=== PATIENT | male | born 1985 | race Two or more races ===

== ENCOUNTER 2024-03-07 12:39 | Inpatient (IN) | payer OTHER ==
[~2024-03-07] VITALS: Ht 172.7 cm; Wt 100.0 kg
[2024-03-07] MEDS: LevETIRAcetam 1,000 MG in DEXTROSE 5%-WATER 100 ML IV ONE (13:22)
[2024-03-07 13:25] LABS: BASOPHILS % (AUTO) 0.3 % (0.0-2.0); EOSINOPHILS % (AUTO) 0.6 % (1.0-6.0); HEMATOCRIT 44.3 % (41-53); LYMPHOCYTES # (AUTO) 0.9 K/uL (1.0-4.8); LYMPHOCYTES % (AUTO) 14.5 % (22.0-44.0); MEAN CORPUSCULAR HEMOGLOBIN 29.3 pg (26.0-34.0); MEAN CORPUSCULAR HGB CONC 33.8 G/dL (31.0-37.0); MEAN CORPUSCULAR VOLUME 87 fL (80-100); MONOCYTES # (AUTO) 0.5 K/uL (0.1-1.0); MONOCYTES % (AUTO) 7.4 % (2.0-9.0); NEUTROPHILS % (AUTO) 77.2 % (40.0-70.0); PLATELET COUNT (AUTO) 263 K/uL (150-450); RED BLOOD CELL COUNT(AUTO) 5.11 MIL/uL (4.50-5.90); RED CELL DISTRIBUTION WIDTH 13.6 % (11.5-14.5); WHITE BLOOD COUNT (AUTO) 6.5 K/uL (4.5-11.0)
[2024-03-07 13:43] LABS: ANION GAP 4 mmol/L (8-16); CALCIUM, TOTAL 8.8 mg/dL (8.8-10.5); CARBON DIOXIDE 31 mmol/L (22-29); CHLORIDE 102 mmol/L (98-107); CREATININE 1.13 mg/dL (0.60-1.30); GLOMERULAR FILTR. RATE CALC > 60 mL/min (>60); GLUCOSE,RANDOM 103 mg/dL (70-110); POTASSIUM 5.7 mmol/L (3.5-5.1); SODIUM SERUM 137 mmol/L (136-145); UREA NITROGEN, BLOOD 12 mg/dL (7-18)
[2024-03-07 13:51] LABS: B-TYPE NATRIURETIC PEPTIDE 5 pg/mL (0-100)
[2024-03-07 13:56] LABS: TROPONIN I-HIGH SENSITIVITY Less Than 4 ng/L (<76)
[2024-03-07 14:07] LABS: CREATINE KINASE, TOTAL ONLY 117 U/L (39-308)
[2024-03-07 14:47] LABS: ALCOHOL, BLOOD (SERUM) < 3 mg/dL (0-10)
[2024-03-07] MEDS ORDERED: ONDANSETRON HCL 4 MG/2 ML VIAL IVP PRN (18:00)
[2024-03-07] MEDS ORDERED: BISACODYL 10 MG RECTAL RECTAL SUPPOSITORY PR PRN (18:00)
[2024-03-07] MEDS ORDERED: IPRATROPIUM BROMIDE 0.5 MG/2.5 ML NEB SOLUTION NEB PRN (18:00)
[2024-03-07] MEDS ORDERED: MAGNESIUM HYDROXIDE SUSPENSION 30 ML UDCUP PO PRN (18:00)
[2024-03-07] MEDS ORDERED: ALBUTEROL SULFATE 2.5 MG/0.5 ML NEB SOLUTION NEB PRN (18:00)
[2024-03-07 19:07] LABS: APPEARANCE,URINE CLEAR (CLEAR); BILIRUBIN,URINE NEGATIVE (NEGATIVE); COLOR,URINE LIGHT YELLOW (YELLOW); GLUCOSE, URINE (UA) NEGATIVE (NEGATIVE); KETONES,URINE NEGATIVE (NEGATIVE); LEUKOCYTE ESTERASE ,URINE NEGATIVE (NEGATIVE); NITRATE,URINE NEGATIVE (NEGATIVE); OCCULT BLOOD,URINE NEGATIVE (NEGATIVE); PROTEIN,URINE NEGATIVE (NEGATIVE); SPECIFIC GRAVITIY, URINE 1.011 (1.003-1.030); UROBILINOGEN,URINE <=1.0 mg/dL (<=1.0)
[2024-03-07 19:14] LABS: AMPHET/METH SCREEN,URINE NEGATIVE (NEGATIVE); BARBITURATE SCREEN, URINE NEGATIVE (NEGATIVE); BENZODIAZEPINES SCREEN,URINE NEGATIVE (NEGATIVE); CANNABINOID SCREEN,URINE NEGATIVE (NEGATIVE); COCAINE SCREEN,URINE NEGATIVE (NEGATIVE); METHADONE SCREEN, URINE NEGATIVE (NEGATIVE); OPIATE SCREEN,URINE NEGATIVE (NEGATIVE); PHENCYCLIDINE SCREEN,URINE NEGATIVE (NEGATIVE)
[2024-03-07 19:17] LABS: ALCOHOL, URINE DRUG SCREEN NEGATIVE (NEGATIVE)
[2024-03-07 21:24] VITALS: BP 112/79; PULSE 72; RESP 18; TEMP 98.6; O2SAT 98
[2024-03-07] MEDS: LevETIRAcetam 500 MG TABLET PO SCH (21:25)
[2024-03-07] MEDS: HEPARIN SODIUM,PORCINE 5,000 UNITS/ML VIAL SQ SCH (23:27)
[2024-03-08 00:11] VITALS: BP 117/70; PULSE 71; RESP 18; TEMP 97.8; O2SAT 98
[2024-03-08 04:06] VITALS: BP 94/56; PULSE 71; RESP 18; TEMP 97.7; O2SAT 98
[2024-03-08] MEDS: PANTOPRAZOLE SODIUM 40 MG DR TABLET PO SCH (08:48)
[2024-03-08 11:21] VITALS: BP 112/60; PULSE 73; RESP 16; TEMP 98; O2SAT 98
[2024-03-08] MEDS: HYDROCODONE/ACETAMINOPHEN 5-325 MG TABLET PO PRN (14:33)
[2024-03-08 16:00] VITALS: BP 110/57; PULSE 82; RESP 15; TEMP 99.2; O2SAT 96
[2024-03-08] MEDS: MORPHINE SULFATE 2 MG/ML SYRINGE IVP PRN (17:04)
[2024-03-08 19:42] VITALS: BP 96/63; PULSE 69; RESP 16; TEMP 98.2; O2SAT 96
[2024-03-08] MEDS: ZOLPIDEM TARTRATE 5 MG TABLET PO PRN (21:05)
[2024-03-08 23:35] VITALS: BP 107/64; PULSE 76; RESP 18; TEMP 97.8; O2SAT 95
[2024-03-09 03:39] VITALS: BP 102/69; PULSE 71; RESP 17; TEMP 97.7; O2SAT 97
[2024-03-09 08:33] VITALS: BP 117/69; PULSE 77; RESP 18; TEMP 98.1; O2SAT 100
[2024-03-09 10:35] VITALS: BP 115/64; PULSE 74; RESP 19; TEMP 98; O2SAT 99
[2024-03-09] MEDS: ACETAMINOPHEN 325 MG TABLET PO PRN (13:18)
[2024-03-09 16:00] VITALS: BP 100/64; PULSE 85; RESP 15; TEMP 99.4; O2SAT 96
[2024-03-09] MEDS: SUMAtriptan SUCCINATE 6 MG/0.5 ML VIAL SQ ONE (18:58)
[2024-03-09 19:37] VITALS: BP 139/74; PULSE 81; RESP 17; TEMP 99.1; O2SAT 95
[2024-03-09] MEDS ORDERED: SUMAtriptan SUCCINATE 25 MG TABLET PO PRN (19:45)
[2024-03-09] MEDS ORDERED: LEVE500T8 PO (20:10)
[2024-03-09] MEDS ORDERED: SUMA25TA15 PO ×2 (20:12→20:19)
[2024-03-09 23:57] VITALS: BP 129/70; PULSE 79; RESP 18; TEMP 98.3; O2SAT 96
[2024-03-10 04:39] VITALS: BP 117/66; PULSE 77; RESP 18; TEMP 97.8; O2SAT 96
[2024-03-10 07:25] VITALS: BP 109/79; PULSE 87; RESP 19; TEMP 98.4; O2SAT 94
== END 2024-03-10 07:51 | DRG 101 ==
LOC: EMS 12:39 → EDH 18:03 → 5S 20:59
PROVIDERS: ADMIT Hospitalist; ATTEND Hospitalist
DX: R56.9 Unspecified convulsions (principal); F11.20 Opioid dependence, uncomplicated; J45.909 Unspecified asthma, uncomplicated; E87.5 Hyperkalemia; G43.909 Migraine, unspecified, not intractable, without status migrainosus; F17.210 Nicotine dependence, cigarettes, uncomplicated
CPT/HCPCS: 70450; 70551; 71045; 72125; 80048; 80307; 81003; 82550; 83880; 84132; 84484; 85025; 93005; 95816; 99285; G0480; J0712; J1644; J2270; J3030; J7060; 36415-L1; 36415-TC